=== PATIENT | male | born 1985 | race Caucasian/White ===

== ENCOUNTER 2018-02-13 14:55 | Emergency (ER) | payer OTHER ==
[~2018-02-13] VITALS: Ht 177.8 cm; Wt 111.9 kg
[2018-02-13 15:08] VITALS: TEMP 36.8; Ht 177.8 cm; Wt 111.9 kg
--- NOTE | 2018-02-13 16:03 | DIAGNOSTIC IMAGING REPORT ---
R FOREARM 2 VIEWS ROUTINE, R HAND MIN 3 VIEWS ROUTINE CLINICAL HISTORY: 33 years-old Male presenting with right hand and forearm pain and injury. TECHNIQUE: Frontal and lateral views of the right forearm as well as frontal, oblique, and lateral views of the right hand were obtained. COMPARISON: None. FINDINGS: Right forearm: Proximal and distal radial ulnar articulations grossly congruent. No acute fracture or malalignment. No advanced degenerative change. No radiographic soft tissue abnormality. Right hand: No acute fracture or malalignment. No advanced degenerative change. No radiographic soft tissue abnormality. IMPRESSION: No acute osseous injury right forearm or hand. Electronically signed by: Joe Thorne M.D. 02/13/2018 4:02 PM Dictated Date/Time: 02/13/2018 4:00 PM
[2018-02-13] MEDS ORDERED: IBUPROFEN 600 MG TAB PO STA (16:35)
[2018-02-13 17:08] VITALS: BP 115/57; PULSE 67; O2SAT 95
--- NOTE | 2018-02-14 15:56 | EMERGENCY ROOM VISIT NOTE ---
ED Visit Note First contact with patient: 15:12 Chief Complaint: Right forearm, right wrist and right hand pain. History of Present Illness: Mr. Tanner is a 33-year-old male who ambulates into the ED accompanied by male friend complaining of right forearm, right wrist and right hand pain. 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 He reports his hand was lying against a door frame and his commanding officer accidentally struck his arm, wrist and hand. He reports since that time he has been having moderate to severe pain over the distal forearm, the wrist and the lateral metacarpals of the hand. Currently he describes his pain as a sharp and throbbing sensation. He rates his discomfort 8/10. His pain is nonradiating. His pain worsens with palpation in all movements of the forearm, wrist and hand. He has not identified any alleviating factors related to the pain. He was assessed at the [facility] and put in a long arm splint to immobilize the forearm, wrist and hand. He has not had any medications or other therapies for his discomfort. He denies any associated neck pain, shoulder pain, upper arm pain, hand weakness/ numbness/tingling. Additionally he denies any previous significant injuries or surgeries to the wrist, forearm or hand. Review of Systems: As noted above in history of present illness. Past Medical History: Asthma. Current Medications: Patient denies. Allergies to Medications: Patient denies. Social History: Patient is currently employed; he feels safe in his home environment; he denies tobacco and alcohol use. Physical Examination: Vital Signs: Date Time Temp Pulse Resp B/P (MAP) Pulse Ox O2 Delivery O2 Flow Rate FiO2 02/13/18 17:08 67 16 115/57 95 02/13/18 15:08 36.8 84 20 153/78 95 Room Air GENERAL: 33-year-old male in mild to moderate distress due to pain, nontoxic- appearing, afebrile and hemodynamically stable. NEUROLOGICAL: Awake, alert and oriented to person, place and time. Answering questions appropriately and following commands. SKIN: Warm, dry and pink. No open soft tissue trauma noted. RIGHT UPPER EXTREMITY: No gross bony deformity. No tenderness in the shoulder, upper arm or elbow. Moderate tenderness over the mid to distal forearm predominantly over the lateral surface. There is some mild swelling and possible early bruising. No bony deformity or crepitus. Decreased range of motion in pronation and supination of forearm due to pain. There is mild tenderness over the wrist. No anatomical snuffbox tenderness. There is no swelling, bony deformity or ecchymosis in this area. Once again there is decreased range of motion due to pain. Mild tenderness over the lateral 3 metacarpals with minimal swelling. No bony deformity, bony crepitus, swelling or ecchymosis. Patient was able to wiggle all his fingers. Throughout the hand and fingers the skin was warm and pink and capillary refill was brisk. He was able to distinguish light sensations to all dermatomes. ED Course: Patient is assessed as noted above. Patient's medication list was reviewed. Patient was given 600 mg of ibuprofen and ice for pain and comfort. Right Forearm X-Rays: Were read by myself and the radiologist showing no acute fractures or dislocations. Right Hand X-Rays: Were read by myself and the radiologist showing no acute fractures or dislocations. Patient was placed in a wrist lacer splint. Patient was educated about today's findings and instructed on his treatment plan ; he verbalized understanding and agreement with this plan. Clinical Impression: Right forearm, wrist and hand pain. Probable early contusions. Work-related injury. Disposition: Patient discharged to home in stable condition accompanied by male friend; prior to departure he was reassessed and subjectively reported he was feeling better and rated his discomfort 3/10. Plan: Comfort measures were discussed with the patient including rest, ice, splint use and alternating ibuprofen and acetaminophen every 3 hours for persistent pain. Patient was signed off of work for 3 days. Patient was encouraged to follow-up with Workmen's Compensation on day 3 for recheck and return to work instruction. Patient was encouraged return the ED for worsening/uncontrolled pain, uncontrolled swelling, hand weakness/numbness/tingling or any new/concerning symptoms
== END 2018-02-13 17:08 | disposition home or self-care (01) ==
LOC: C.EDB 14:56 → C.EDD 17:08
DX: M79.631 Pain in right forearm (principal); M79.641 Pain in right hand; M25.531 Pain in right wrist; W50.0XXA Accidental hit or strike by another person, initial encounter; Y92.149 Unspecified place in prison as the place of occurrence of the external cause; Y99.0 Civilian activity done for income or pay; J45.909 Unspecified asthma, uncomplicated

== ENCOUNTER 2024-08-02 19:54 | Inpatient (IN) ==
--- NOTE | 2024-08-02 20:04 | Emergency Department Note ---
Impression & Plan Diverticulitis, Abdominal pain ED Provider Note CHIEF COMPLAINT: Abdominal pain HISTORY OF PRESENT ILLNESS: This 39-year-old male patient presents to the emergency department via private vehicle for evaluation of left lower quadrant abdominal pain. He reports he was seen at [facility], prior to arrival. He reports pain has been persistent over the last 2 days, with history of diverticulitis. He states his last bowel movement was today, which was normal. The patient reports no pain in the RLQ, or radiation of pain from the left to right. He reports no fever, nausea/vomiting, diarrhea, constipation, or dysuria. He reports no radiation of the pain into the testicle. He reports no previous abdominal surgeries, or history. REVIEW OF SYSTEMS: A review of systems was performed with positives and pertinent negatives listed in the history of present illness. All other systems were reviewed and are negative. ALLERGIES: See below MEDICATIONS: See below PMH: See below PHYSICAL EXAM: VITALS: Vitals are noted on the nurse's note and reviewed by myself. Vital signs stable. GENERAL: 39-year-old male, in no acute distress, nondiaphoretic, well-developed well-nourished. SKIN: The skin was without rashes, erythema, edema, or bruising. HEAD: Normocephalic atraumatic. HEART: Regular rate and rhythm without murmurs gallops or rubs. LUNGS: Clear to auscultation bilaterally without wheezes, rales or rhonchi. No retractions or accessory muscle use. ABDOMEN: Positive bowel sounds x 4. Soft, severe TTP, with rebound tenderness and guarding. MUSCULOSKELETAL: No muscle atrophy, erythema, or edema noted. Full range of motion without joint tenderness in all extremities. No tenderness to palpation. Normal gait. Strength 5/5 throughout. NEURO: Patient was alert and oriented to person place and time. No focal neurological deficits. MEDICAL DECISION MAKING: Patient is a pleasant 39-year-old male who presents to the emergency department for evaluation of the above stated complaint. A saline lock was established, CBC, CMP, lipase, urinalysis were obtained. Patient was severely painful, therefore IV morphine was provided, as well as 4 mg of IV Zofran and a liter bolus of normal saline. Lab work shows leukocytosis, 19.8, with a stable anemia. CMP is unremarkable, lipase negative. CT imaging of the abdomen pelvis with IV contrast was obtained which shows acute diverticulitis without abscess. IV Zosyn was administered with IV morphine and Dilaudid for pain control. The patient did request his albuterol HFA inhaler for mild shob. I spoke with the admitting hospitalist regarding the patient who agreed to accept the patient under his care. Please refer to Dr. Wu's documentation for further patient workup and care. DIFFERENTIAL DIAGNOSIS: Appendicitis, testicular torsion, infections, diverticulitis, UTI, obstruction, mesenteric ischemia, aortic pathology, inflammatory bowel disease, renal colic, PUD, pancreatitis, biliary pathology, hernia, volvulus, constipation, as well as other pathologies. The chart was completed utilizing [employer] Speech voice recognition software. Grammatical errors, random word insertions, pronoun errors, and incomplete sentences are an occasional consequence of this system due to software limitations, ambient noise, and hardware issues. Any formal questions or concerns about the content, text, or information contained within the body of this dictation should be directly addressed to the physician for clarification. Past Med/Surg History Problem List (Updated 08/04/24 @ 20:54 by CHENCHO Jay) Abdominal pain (Acute) Diverticulitis (Acute) Sepsis No significant past surgical history Plaque psoriasis Family History Other No pertinent family history Social History Smoking Status: Never smoker Tobacco Type: Smokeless Tobacco (Dip or Chew) Hx Alcohol Use: No Hx Substance Use: No Preferred Language: Portuguese Communication Ability: Effective Food Processing Chemist Required: No Beliefs That Will Affect Care: None Current Living Situation: Spouse Feels Safe at Home: Yes Safety Concerns: Feels Safe At This Time Assistive Devices: None Allergies Allergies Allergy/AdvReac Type Severity Reaction Status Date / Time No Known Allergies Allergy Unverified 07/31/21 23:09 Home Meds Home Medications Medication Instructions Recorded Confirmed citalopram 40 mg tablet 40 mg PO DAILY 07/31/21 07/31/21 Results & Data (ED) Vital Signs Vital Signs - 24 hr 08/02/24 19:56 Temperature 36.4 C L Temperature Source Temporal Artery Scan Pulse Rate 112 H Pulse Rhythm Regular Pulse Strength Normal Respiratory Rate 20 Respiratory Effort / Characteristics Non-Labored Spontaneous Respiratory Depth Normal Blood Pressure 172/85 H Blood Pressure Mean 114 Blood Pressure Position Sitting Pulse Oximetry 97 Oxygen Delivery Method Room Air Sepsis Recent Fever Within 48 Hours No Sepsis New/Unexplained Change in Mental Status N/A Sepsis Action Taken by Nursing No Action Required Home Medications Current Medication List: was personally reviewed by me Laboratory Data Attestation: I reviewed the patient's lab results. 08/04/24 07:45 08/04/24 07:45 Lab Results 08/02/24 08/02/24 Range/Units 20:22 21:00 WBC 19.80 H (4.8-10.8) K/ul RBC 4.61 L (4.70-6.10) M/uL Hgb 13.2 L (14.0-18.0) g/dl Hct 37.4 L (42.0-52.0) % MCV 81.1 (80.0-100.0) fL MCH 28.6 (25.0-34.0) pg MCHC 35.3 (32.0-36.0) g/dL RDW Std Deviation 37.2 (36.4-46.3) fL RDW Coeff of Libby 12.7 (11.5-14.5) % Plt Count 393 (130-400) K/uL MPV 9.5 (9.4-12.4) fL Immature Gran % (Auto) 0.6 % Neut % (Auto) 83.4 % Lymph % (Auto) 7.9 % [place] % (Auto) 7.0 % Eos % (Auto) 0.6 % Baso % (Auto) 0.5 % Neut # (Auto) 16.55 H (1.40-6.50) K/uL Lymph # (Auto) 1.56 (1.20-3.40) K/uL [place] # (Auto) 1.38 H (0.11-0.59) K/uL Eos # (Auto) 0.11 (0.00-0.50) K/uL Baso # (Auto) 0.09 (0.00-0.20) K/uL Immature Gran # (Auto) 0.11 (0.01-0.20) K/uL Sodium 137 (136-145) mmol/L Potassium 3.8 (3.5-5.1) mmol/L Chloride 103 (98-107) mmol/L Carbon Dioxide 24 (21-32) mmol/L Anion Gap 10 (3-11) BUN 17 (6-23) mg/dl Creatinine 0.88 (0.6-1.4) mg/dl Est Cr Clr Drug Dosing 136.4 ml/min eGFR 111.48 BUN/Creatinine Ratio 19.3 (10-20) Glucose 115 H (70-99(Fasting)) mg/dl Calcium 9.3 (8.6-10.3) mg/dl Magnesium 1.9 (1.7-2.4) mg/dl Total Bilirubin 1.1 H (0.2-1.0) mg/dl AST 37 (13-39) U/L ALT 40 (7-52) U/L Alkaline Phosphatase 69 (34-104) U/L Total Protein 7.9 (6.0-8.3) gm/dl Albumin 4.5 (3.4-5.0) gm/dl Globulin 3.4 (2.5-4.0) gm/dl Albumin/Globulin Ratio 1.3 (0.9-2) Lipase 43 (11-82) U/L Urine Color Yellow Urine Appearance Clear (Clear) Urine pH 7.5 (4.5-7.5) Ur Specific Collins > 1.045 H (1.000-1.030) Urine Protein Negative (Negative) Urine Glucose (UA) Negative (Negative) Urine Ketones Negative (Negative) Urine Blood 2+ H (Negative) Urine Nitrite Negative (Negative) Urine Bilirubin Negative (Negative) Urine Urobilinogen Negative (Negative) Ur Leukocyte Esterase Negative (Negative) Urine WBC (Auto) 0-5 (0-5) /hpf Urine RBC (Auto) >20 H (0-2) /hpf U Hyaline Cast (Auto) 0-2 (0-2) /lpf U Epithel Cells (Auto) 0-2 (0-2) /hpf Urine Bacteria (Auto) None Seen (None Seen) Administered Medications Citalopram Hydrobromide (Citalopram 40 Mg Tab) [facility] Stop: 09/02/24 08:59 Last Admin: 08/04/24 09:02 Dose: Not Given Documented By: BCMike Admin: 08/03/24 07:21 Dose: 40 mg Documented By: AJB Hydromorphone HCl (Hydromorphone Inj 0.5 Mg/0.5 Ml Syr) 0.5 mg IV Q3H PRN PRN Reason: Mod-Sev Pain (Scale 4-10) Stop: 08/17/24 19:43 Last Admin: 08/04/24 19:12 Dose: 0.5 mg Documented By: Admin: 08/04/24 15:28 Dose: 0.5 mg Documented By: Admin: 08/04/24 11:40 Dose: 0.5 mg Documented By: Admin: 08/04/24 08:33 Dose: 0.5 mg Documented By: Admin: 08/04/24 05:13 Dose: 0.5 mg Documented By: Admin: 08/04/24 00:57 Dose: 0.5 mg Documented By: Admin: 08/03/24 21:47 Dose: 0.5 mg Documented By: DEANDRE Piperacillin Sod/Tazobactam Sod (Zosyn) 4.5 gm in 100 mls @ 25 mls/hr IV Q8H BETTYE; Protocol Stop: 08/13/24 02:59 Last Admin: 08/04/24 18:06 Dose: 25 mls/hr Documented By: Infusion: 08/04/24 14:48 Dose: Infused Documented By: Admin: 08/04/24 10:42 Dose: 25 mls/hr Documented By: Infusion: 08/04/24 07:20 Dose: Infused Documented By: Admin: 08/04/24 02:54 Dose: 25 mls/hr Documented By: Infusion: 08/04/24 00:37 Dose: Infused Documented By: Admin: 08/03/24 20:35 Dose: 25 mls/hr Documented By: Infusion: 08/03/24 15:43 Dose: Infused Documented By: Admin: 08/03/24 11:43 Dose: 25 mls/hr Documented By: Infusion: 08/03/24 07:09 Dose: Infused Documented By: Admin: 08/03/24 03:09 Dose: 25 mls/hr Documented By: DEANDRE Dextrose/Sodium Chloride (D5w And 1/2nss) 1,000 mls @ 125 mls/hr IV .Q8H BETTYE Stop: 08/05/24 19:21 Last Admin: 08/04/24 19:49 Dose: 125 mls/hr Documented By: NANCY Lisinopril (Lisinopril 5 Mg Tab) 5 mg PO QAM [facility] Stop: 09/02/24 08:59 Last Admin: 08/04/24 08:06 Dose: 5 mg Documented By: Admin: 08/03/24 07:21 Dose: 5 mg Documented By: KATIA Lorazepam (Lorazepam 1 Mg Tab) 1 mg PO TID PRN PRN Reason: Anxiety Stop: 09/01/24 21:26 Last Admin: 08/03/24 21:47 Dose: 1 mg Documented By: DEANDRE Discontinued Medications Acetaminophen (Acetaminophen 325 Mg Tab) 650 mg PO QID PRN PRN Reason: pain/fever Stop: 09/01/24 21:25 Last Admin: 08/03/24 07:28 Dose: 650 mg Documented By: Admin: 08/02/24 23:05 Dose: 650 mg Documented By: DEANDRE Albuterol (Albuterol Hfa 8 Gm Inhaler) 2 puffs INH NOW ONE Stop: 08/02/24 20:23 Last Admin: 08/02/24 20:25 Dose: 2 puffs Documented By: CORIE Clonidine HCl (Clonidine Hcl 0.1 Mg Tab) 0.1 mg PO NOW ONE Stop: 08/02/24 22:00 Last Admin: 08/02/24 23:04 Dose: Not Given Documented By: DEANDRE Hydromorphone HCl (Hydromorphone Inj 0.5 Mg/0.5 Ml Syr) 0.5 mg IV NOW STA Stop: 08/02/24 21:09 Last Admin: 08/02/24 21:21 Dose: 0.5 mg Documented By: CORIE Hydromorphone HCl (Hydromorphone Inj 1 Mg/Ml Syringe) 1 mg IV NOW STA Stop: 08/03/24 09:18 Last Admin: 08/03/24 09:25 Dose: 1 mg Documented By: KATIA Hydromorphone HCl (Hydromorphone Inj 1 Mg/Ml Syringe) 1 mg IV Q3H PRN PRN Reason: Severe Pain (Scale 7, 8, 9,10) Stop: 08/17/24 09:16 Last Admin: 08/03/24 14:20 Dose: 1 mg Documented By: KATIA Hydromorphone HCl (Hydromorphone Inj 0.5 Mg/0.5 Ml Syr) 0.5 mg IV Q3H PRN PRN Reason: Moderate Pain (Scale 4, 5, 6) Stop: 08/17/24 09:16 Last Admin: 08/03/24 11:45 Dose: 0.5 mg Documented By: KATIA Hydromorphone HCl (Hydromorphone Transportation Engineering Technician 30 Mg/30 Ml) 30 mg IV PRN PRN; 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 Stop: 08/17/24 15:22 Last Admin: 08/03/24 19:32 Dose: 30 mg Documented By: DEANDRE Co-signed By: MYESHA Admin: 08/03/24 16:40 Dose: 30 mg Documented By: KATIA Co-signed By: OTILIA Sodium Chloride (Nss) 1,000 mls @ 999 mls/hr IV .Q1H1M ONE Stop: 08/02/24 21:07 Last Infusion: 08/02/24 22:33 Dose: Infused Documented By: Admin: 08/02/24 20:19 Dose: 999 mls/hr Documented By: CORIE Piperacillin Sod/Tazobactam Sod (Zosyn) 4.5 gm in 100 mls @ 200 mls/hr IV NOW ONE; Protocol Stop: 08/02/24 21:12 Last Infusion: 08/02/24 22:00 Dose: Infused Documented By: Admin: 08/02/24 21:00 Dose: 200 mls/hr Documented By: CORIE Potassium Chloride/Sodium Chloride (Normal Saline W/20 Meq Kcl) 20 meq in 1,000 mls @ 60 mls/hr IV .[id number] ONE Stop: 08/03/24 14:51 Last Infusion: 08/03/24 14:59 Dose: Infused Documented By: Admin: 08/03/24 00:08 Dose: 60 mls/hr Documented By: DEANDRE Sodium Chloride (Nss) 1,000 mls @ 999 mls/hr IV .Q1H1M ONE Stop: 08/03/24 16:25 Last Infusion: 08/03/24 16:35 Dose: Infused Documented By: Admin: 08/03/24 15:34 Dose: 999 mls/hr Documented By: KATIA Sodium Chloride (Nss) 1,000 mls @ 125 mls/hr IV .Q8H BETTYE Stop: 08/04/24 15:29 Last Infusion: 08/04/24 16:05 Dose: Infused Documented By: Admin: 08/04/24 08:07 Dose: 125 mls/hr Documented By: Infusion: 08/04/24 08:07 Dose: Infused Documented By: Admin: 08/04/24 00:37 Dose: 125 mls/hr Documented By: Infusion: 08/04/24 00:37 Dose: Infused Documented By: Admin: 08/03/24 16:37 Dose: 125 mls/hr Documented By: KATIA Influenza Virus Vacc Triv Types A&B (Influenza Vacc [id number](6m+)/Pf (Iiv3) 0.5ml Syr) 0.5 ml IM .ONCE ONE Stop: 08/04/24 07:45 Last Admin: 08/04/24 18:05 Dose: Not Given Documented By: CASSANDRA Ioversol (Optiray 320 100ml) 94 ml IV ONCE ONE Stop: 08/02/24 20:38 Last Admin: 08/02/24 20:37 Dose: 94 ml Documented By: JOHANNY Ketorolac Tromethamine (Ketorolac Tromethamine 15 Mg/Ml Vial) 15 mg IV NOW ONE Stop: 08/02/24 22:00 Last Admin: 08/02/24 23:05 Dose: 15 mg Documented By: DEANDRE Lorazepam (Lorazepam 0.5 Mg Tab) 0.5 mg PO TID PRN PRN Reason: Anxiety Stop: 09/01/24 21:26 Last Admin: 08/03/24 14:20 Dose: 0.5 mg Documented By: KATIA Morphine Sulfate (Morphine Sulfate 4 Mg/Ml 1 Ml Carp\Vial) 4 mg IV NOW STA Stop: 08/02/24 20:08 Last Admin: 08/02/24 20:19 Dose: 4 mg Documented By: CORIE Morphine Sulfate (Morphine Sulfate 4 Mg/Ml 1 Ml Carp\Vial) 4 mg IV Q4H PRN PRN Reason: Pain Stop: 08/16/24 21:25 Last Admin: 08/03/24 07:21 Dose: 4 mg Documented By: KATIA Ondansetron HCl (Ondansetron Inj 2 Mg/Ml 2 Ml Vial) 4 mg IV NOW STA Stop: 08/02/24 20:09 Last Admin: 08/02/24 20:19 Dose: 4 mg Documented By: CORIE Oxycodone HCl (Oxycodone Hcl Ir 5 Mg Tab (Immediate Release)) 5 - 10 mg PO QID PRN PRN Reason: Pain Stop: 08/16/24 21:25 Last Admin: 08/03/24 04:48 Dose: 10 mg Documented By: DEANDRE Potassium Chloride (Potassium Chloride Crtab 20 Meq Tabcr) 20 meq PO NOW STA Stop: 08/04/24 12:54 Last Admin: 08/04/24 13:17 Dose: 20 meq Documented By: CASSANDRA Imaging Data Attestation: I personally reviewed and interpreted this imaging study as follows: Discharge Plan Visit Data Chief Complaint: Abdominal Pain Stated Complaint: LT LOWER QUAD PAIN ED Provider: Jorge Yadav ED Midlevel Provider: Farhana Elliott Discharge Problem: Diverticulitis, Abdominal pain Patient Disposition: Admitted As Inpatient Discharge Instructions Interventions: ED Discharge Assessment Last Done: 08/02/24 22:31 Discharge Problem: Abdominal pain Qualifiers: Abdominal location: left lower quadrant Qualified Code(s): R10.32 - Left lower quadrant pain
[2024-08-02] MEDS: SODIUM CHLORIDE 0.9% 1,000 ML IV ONE (20:19)
[2024-08-02] MEDS: ONDANSETRON INJ 2 MG/ML 2 ML VIAL IV STA (20:19)
[2024-08-02] MEDS: MoRPHine SULFATE 4 MG/ML 1 ML CARP\\VIAL IV STA (20:19)
[2024-08-02] MEDS: ALBUTEROL HFA 8 GM INHALER INH ONE (20:25)
[2024-08-02 20:37] LABS: Basophils # (auto) 0.09 K/uL (0.00-0.20); Basophils % (auto) 0.5 %; Eosinophils # (auto) 0.11 K/uL (0.00-0.50); Eosinophils % (auto) 0.6 %; Hematocrit (blood only) 37.4 % (42.0-52.0); Hemoglobin 13.2 g/dl (14.0-18.0); Immature Granulocytes # (auto) 0.11 K/uL (0.01-0.20); Immature Granulocytes % (auto) 0.6 %; Lymphocytes # (auto) 1.56 K/uL (1.20-3.40); Lymphocytes % (auto) 7.9 %; Mean Corpuscular Hemoglobin 28.6 pg (25.0-34.0); Mean Corpuscular Hgb Conc 35.3 g/dL (32.0-36.0); Mean Corpuscular Volume 81.1 fL (80.0-100.0); Mean Platelet Volume 9.5 fL (9.4-12.4); Monocytes # (auto) 1.38 K/uL (0.11-0.59); Neutrophils # (auto) 16.55 K/uL (1.40-6.50); Neutrophils % (auto) 83.4 %; Platelet Count 393 K/uL (130-400); RDW Coefficient of Variation 12.7 % (11.5-14.5); RDW Standard Deviation 37.2 fL (36.4-46.3); Red Blood Count 4.61 M/uL (4.70-6.10)
[2024-08-02] MEDS: OPTIRAY 320 100ml IV ONE (20:37)
[2024-08-02 20:53] LABS: Albumin Globulin Ratio 1.3 (0.9-2); Albumin Level 4.5 gm/dl (3.4-5.0); BUN Creatinine Ratio 19.3 (10-20); Bilirubin,Total 1.1 mg/dl (0.2-1.0); Calcium 9.3 mg/dl (8.6-10.3); Creatinine Clr Calc Pharmacy 136.4 ml/min; Globulin 3.4 gm/dl (2.5-4.0); Potassium 3.8 mmol/L (3.5-5.1); Total Protein 7.9 gm/dl (6.0-8.3)
--- NOTE | 2024-08-02 20:57 | CT Scan Report ---
Exam(s): CT ABDOMEN + PELVIS With Contrast IV Amt: 94ml optiray 320 EXAM: CT Abdomen and Pelvis With Intravenous Contrast CLINICAL HISTORY: Reason for exam: TTP LLQ. TECHNIQUE: Axial computed tomography images of the abdomen and pelvis with intravenous contrast. CTDI is 28 mGy and DLP is 1556 mGy-cm. Automated exposure control was utilized for the study. A dose lowering technique was utilized adhering to the principles of ALARA. CONTRAST: Patient received 94ml optiray 320 of IV contrast COMPARISON: No relevant prior studies available. FINDINGS: Lung bases: Unremarkable. ABDOMEN: Liver: Unremarkable. No mass. Gallbladder and bile ducts: Unremarkable. No calcified stones. No ductal dilation. Pancreas: Unremarkable. No mass. No ductal dilation. Spleen: Calcified splenic granuloma. Adrenals: Unremarkable. No mass. Kidneys and ureters: Symmetric renal enhancement. No hydronephrosis. Subcentimeter left renal cysts; no follow-up indicated. Stomach and bowel: No bowel obstruction. Diverticulosis. Acute diverticulitis of the mid sigmoid colon. Prominent pocket of gas adjacent to the sigmoid colon is favored gas within an inflamed diverticulum rather than microperforation (series 2, image 80). PELVIS: Appendix: Normal appendix. Bladder: Unremarkable. No mass. Reproductive: Unremarkable as visualized. ABDOMEN and PELVIS: Intraperitoneal space: Trace ascites in the left lower quadrant. No abscess. No convincing evidence of free air. Bones/joints: No acute fracture. No dislocation. Soft tissues: Unremarkable. Vasculature: Unremarkable. No abdominal aortic aneurysm. Lymph nodes: Mildly enlarged, reactive lymph nodes in the sigmoid mesentery. IMPRESSION: Acute diverticulitis of the mid sigmoid colon. Prominent pocket of gas adjacent to the sigmoid colon is favored gas within an inflamed diverticulum rather than microperforation (series 2, image 80). No abscess. Electronically signed by: Marixa Batista M.D. 08/02/24 20:56 PM
[2024-08-02] MEDS: PIPERACILLIN/TAZOBACTAM 4.5 GM/100 ML BAG IV ONE (21:00)
[2024-08-02] MEDS: HYDROmorphone INJ 0.5 MG/0.5 ML SYR IV STA (21:21)
--- NOTE | 2024-08-02 21:24 | History & Physical Report ---
Date of Service August 02, 2024 Assessment & Plan (1) Sepsis: Plan: Sepsis secondary to acute diverticulitis Hypertensive urgency, history of borderline hypertension New onset anemia, no prior diagnosis as per patient patient without overt bleed symptoms Hyperglycemia rule out DM Medical telemetry CS, Zosyn Outpatient GI consult Clonidine 1 dose now, initiate lisinopril if with persistent BP elevation Anemia workup Check hemoglobin A1c DVT prophylaxis. SCDs until occult GI bleed ruled out; Lovenox subcu if FOBT negative Full code Text document was generated using [employer] voice recognition software. It may contain grammatical or spelling errors. Kindly contact undersigned for clarification of any documentation item in question. History of Present Illness Chief Complaint: Left-sided abdominal pain Primary Care Provider: [facility] History obtained from patient and records. Medical history significant for borderline hypertension, mood disorder. 2 days history of achy left lower quadrant pain associated with nausea and vomiting symptoms. Fever chills at home. Denies constipation, diarrhea or hematochezia symptoms. No prior episodes. Highest SBP of 170s documented at the ER. IV Zosyn administered at the ER. Medical History as above No prior colonoscopies. 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 Allergies Allergy/AdvReac Type Severity Reaction Status Date / Time No Known Allergies Allergy Unverified 07/31/21 23:09 Home Medications Medication Instructions Recorded Confirmed Type citalopram 40 mg tablet 40 mg PO DAILY 07/31/21 07/31/21 History Past Med/Surg History Problem List (Updated 08/02/24 @ 23:00 by Ramses Wu MD) Sepsis No significant past surgical history Plaque psoriasis Medical History Plaque psoriasis Surgical History No significant past surgical history Family History Other No pertinent family history Social History Smoking Status: Never smoker Preferred Language: Cook Islander Feels Safe at Home: Yes Review of Systems Review of Systems: As per HPI, all other systems reviewed and negative Physical Exam Physical Exam: GENERAL: uncomfortable, obese, no respiratory distress SKIN: Normal color, warm HEENT: [place] palpebral conjunctivae, no ptosis, dry buccal mucosa NECK : Supple, short neck, no tenderness CHEST : Decreased breath sounds, no tenderness HEART : RRR, no obvious murmurs ABDOMEN: Some distention, left lower quadrant tenderness EXTREMITIES : Minimal LE swelling/tenderness, palpable pulses, no other conspicuous deformities noted NEUROLOGIC : Coherent, no facial asymmetry, no other gross focality Results & Data Results & Data Vital Signs (Past 12 Hours) Vital Signs Temp Pulse Pulse Resp BP BP Pulse Ox 08/02/24 21:04 08/02/24 21:03 98 H 16 155/81 H 95 08/02/24 19:56 36.4 C L 112 H 20 172/85 H 97 O2 Del Method 08/02/24 21:04 Room Air 08/02/24 21:03 Room Air 08/02/24 19:56 Room Air Laboratory Results Laboratory Results WBC 19.80 K/ul (4.8-10.8) H 08/02/24 20:22 RBC 4.61 M/uL (4.70-6.10) L 08/02/24 20:22 Hgb 13.2 g/dl (14.0-18.0) L 08/02/24 20:22 Hct 37.4 % (42.0-52.0) L 08/02/24 20:22 MCV 81.1 fL (80.0-100.0) 08/02/24 20:22 MCH 28.6 pg (25.0-34.0) 08/02/24 20:22 MCHC 35.3 g/dL (32.0-36.0) 08/02/24 20:22 RDW Std Deviation 37.2 fL (36.4-46.3) 08/02/24 20:22 RDW Coeff of Libby 12.7 % (11.5-14.5) 08/02/24 20:22 Plt Count 393 K/uL (130-400) 08/02/24 20:22 MPV 9.5 fL (9.4-12.4) 08/02/24 20:22 Immature Gran % (Auto) 0.6 % 08/02/24 20:22 Neut % (Auto) 83.4 % 08/02/24 20:22 Lymph % (Auto) 7.9 % 08/02/24 20:22 Bartholomew % (Auto) 7.0 % 08/02/24 20:22 Eos % (Auto) 0.6 % 08/02/24 20:22 Baso % (Auto) 0.5 % 08/02/24 20:22 Neut # (Auto) 16.55 K/uL (1.40-6.50) H 08/02/24 20:22 Lymph # (Auto) 1.56 K/uL (1.20-3.40) 08/02/24 20:22 Bartholomew # (Auto) 1.38 K/uL (0.11-0.59) H 08/02/24 20:22 Eos # (Auto) 0.11 K/uL (0.00-0.50) 08/02/24 20:22 Baso # (Auto) 0.09 K/uL (0.00-0.20) 08/02/24 20:22 Immature Gran # (Auto) 0.11 K/uL (0.01-0.20) 08/02/24 20:22 Sodium 137 mmol/L (136-145) 08/02/24 20:22 Potassium 3.8 mmol/L (3.5-5.1) 08/02/24 20:22 Chloride 103 mmol/L (98-107) 08/02/24 20:22 Carbon Dioxide 24 mmol/L (21-32) 08/02/24 20:22 Anion Gap 10 (3-11) 08/02/24 20:22 BUN 17 mg/dl (6-23) 08/02/24 20:22 Creatinine 0.88 mg/dl (0.6-1.4) 08/02/24 20:22 Est Cr Clr Drug Dosing 136.4 ml/min 08/02/24 20:22 eGFR 111.48 08/02/24 20:22 BUN/Creatinine Ratio 19.3 (10-20) 08/02/24 20:22 Glucose 115 mg/dl (70-99(Fasting)) H 08/02/24 20:22 Calcium 9.3 mg/dl (8.6-10.3) 08/02/24 20:22 Total Bilirubin 1.1 mg/dl (0.2-1.0) H 08/02/24 20:22 AST 37 U/L (13-39) 08/02/24 20:22 ALT 40 U/L (7-52) 08/02/24 20:22 Alkaline Phosphatase 69 U/L (34-104) 08/02/24 20:22 Total Protein 7.9 gm/dl (6.0-8.3) 08/02/24 20:22 Albumin 4.5 gm/dl (3.4-5.0) 08/02/24 20:22 Globulin 3.4 gm/dl (2.5-4.0) 08/02/24 20:22 Albumin/Globulin Ratio 1.3 (0.9-2) 08/02/24 20:22 Lipase 43 U/L (11-82) 08/02/24 20:22 Impressions Abdomen/Pelvis CT 08/02/24 20:08 Exam(s): CT ABDOMEN + PELVIS With Contrast IV Amt: 94ml optiray 320 EXAM: CT Abdomen and Pelvis With Intravenous Contrast CLINICAL HISTORY: Reason for exam: TTP LLQ. TECHNIQUE: Axial computed tomography images of the abdomen and pelvis with intravenous contrast. CTDI is 28 mGy and DLP is 1556 mGy-cm. Automated exposure control was utilized for the study. A dose lowering technique was utilized adhering to the principles of ALARA. CONTRAST: Patient received 94ml optiray 320 of IV contrast COMPARISON: No relevant prior studies available. FINDINGS: Lung bases: Unremarkable. ABDOMEN: Liver: Unremarkable. No mass. Gallbladder and bile ducts: Unremarkable. No calcified stones. No ductal dilation. Pancreas: Unremarkable. No mass. No ductal dilation. Spleen: Calcified splenic granuloma. Adrenals: Unremarkable. No mass. Kidneys and ureters: Symmetric renal enhancement. No hydronephrosis. Subcentimeter left renal cysts; no follow-up indicated. Stomach and bowel: No bowel obstruction. Diverticulosis. Acute diverticulitis of the mid sigmoid colon. Prominent pocket of gas adjacent to the sigmoid colon is favored gas within an inflamed diverticulum rather than microperforation (series 2, image 80). PELVIS: Appendix: Normal appendix. Bladder: Unremarkable. No mass. Reproductive: Unremarkable as visualized. ABDOMEN and PELVIS: Intraperitoneal space: Trace ascites in the left lower quadrant. No abscess. No convincing evidence of free air. Bones/joints: No acute fracture. No dislocation. Soft tissues: Unremarkable. Vasculature: Unremarkable. No abdominal aortic aneurysm. Lymph nodes: Mildly enlarged, reactive lymph nodes in the sigmoid mesentery. IMPRESSION: Acute diverticulitis of the mid sigmoid colon. Prominent pocket of gas adjacent to the sigmoid colon is favored gas within an inflamed diverticulum rather than microperforation (series 2, image 80). No abscess. Electronically signed by: Marixa Batista M.D. 08/02/24 20:56 PM Diagnostic Findings EKG as per my interpretation :Rate 105, sinus tachycardia, normal axis, no ischemia
[2024-08-02] MEDS ORDERED: PROMETHAZINE 12.5 MG/50.5 ML BAG IV PRN (21:26)
[2024-08-02 21:40] LABS: Magnesium 1.9 mg/dl (1.7-2.4)
[2024-08-02 21:46] LABS: Appearance Urine Clear (Clear); Bacteria Urine Automated None Seen (None Seen); Bilirubin Urine Negative (Negative); Blood Urine 2+ (Negative); Cast Urine Automated 0-2 /lpf (0-2); Color Urine Yellow; Epithelial Cell Urine Auto 0-2 /hpf (0-2); Glucose Urine UA Negative (Negative); Ketones Urine Negative (Negative); Leukocyte Esterase Urine Negative (Negative); Nitrite Urine Negative (Negative); Protein Urine Negative (Negative); RBC Urine Automated >20 /hpf (0-2); Specific Gravity Urine > 1.045 (1.000-1.030); Urobilinogen Urine Negative (Negative); WBC Urine Automated 0-5 /hpf (0-5); pH Urine 7.5 (4.5-7.5)
[2024-08-02] MEDS: cloNIDine HCL 0.1 MG TAB PO ONE (23:04)
[2024-08-02] MEDS: ACETAMINOPHEN 325 MG TAB PO PRN (23:05)
[2024-08-02] MEDS: KETOROLAC TROMETHAMINE 15 MG/ML VIAL IV ONE (23:05)
[2024-08-03] MEDS: NSS + 20MEQ KCL 20 MEQ/1,000 ML BAG IV ONE (00:08)
[2024-08-03] MEDS: PIPERACILLIN/TAZOBACTAM 4.5 GM/100 ML BAG IV SCH (03:09)
[2024-08-03] MEDS: oxyCODONE HCL IR 5 MG TAB (IMMEDIATE RELEASE) PO PRN (04:48)
[2024-08-03 06:30] LABS: Basophils # (auto) 0.07 K/uL (0.00-0.20); Basophils % (auto) 0.3 %; Eosinophils # (auto) 0.03 K/uL (0.00-0.50); Eosinophils % (auto) 0.1 %; Hematocrit (blood only) 35.8 % (42.0-52.0); Hemoglobin 12.1 g/dl (14.0-18.0); Immature Granulocytes # (auto) 0.22 K/uL (0.01-0.20); Immature Granulocytes % (auto) 0.9 %; Lymphocytes # (auto) 1.53 K/uL (1.20-3.40); Lymphocytes % (auto) 6.6 %; Mean Corpuscular Hemoglobin 27.8 pg (25.0-34.0); Mean Corpuscular Hgb Conc 33.8 g/dL (32.0-36.0); Mean Corpuscular Volume 82.1 fL (80.0-100.0); Mean Platelet Volume 9.6 fL (9.4-12.4); Monocytes % (auto) 7.3 %; Neutrophils # (auto) 19.79 K/uL (1.40-6.50); Neutrophils % (auto) 84.8 %; Platelet Count 351 K/uL (130-400); RDW Coefficient of Variation 12.7 % (11.5-14.5); RDW Standard Deviation 38.3 fL (36.4-46.3); Red Blood Count 4.36 M/uL (4.70-6.10); Reticulocyte % 1.57 % (0.50-2.00); White Blood Count 23.34 K/ul (4.8-10.8)
[2024-08-03 06:39] LABS: BUN Creatinine Ratio 15.1 (10-20); Calcium 9.3 mg/dl (8.6-10.3); Creatinine Clr Calc Pharmacy 135.2 ml/min; Potassium 3.9 mmol/L (3.5-5.1)
[2024-08-03 06:59] LABS: Ferritin 325.6 ng/ml (8-388)
[2024-08-03 07:04] LABS: Folate (Folic Acid),Ser orPlas 17.15 ng/ml (>5.38)
[2024-08-03] MEDS: MoRPHine SULFATE 4 MG/ML 1 ML CARP\\VIAL IV PRN (07:21)
[2024-08-03] MEDS: CITALOPRAM 40 MG TAB PO SCH (07:21)
[2024-08-03] MEDS: lisinopril 5 MG TAB PO SCH (07:21)
[2024-08-03] MEDS ORDERED: ACETAMINOPHEN 1,000 MG/100 ML VIAL IV PRN (09:17)
[2024-08-03] MEDS: HYDROmorphone INJ 1 MG/ML SYRINGE IV STA (09:25)
--- NOTE | 2024-08-03 09:26 | Surgery Consultation ---
Date of Consultation August 03, 2024 Assessment & Plan (1) Diverticulitis: First episode. No urgent indication for surgical intervention. Continue antibiotics. Will make him n.p.o. Low-grade fever and leukocytosis. Will monitor both. Will change his morphine to Dilaudid secondary to side effects. Will continue to monitor closely History of Present Illness Attending Physician: Finn Blevins MD History of Present Illness 39-year-old male whose had about a 24-hour history of lower abdominal pain. He was admitted with acute diverticulitis. He is stating the morphine is giving him a headache. He has a low-grade fever and continues to have abdominal pain with no improvement. Allergies Allergy/AdvReac Type Severity Reaction Status Date / Time No Known Allergies Allergy Unverified 07/31/21 23:09 Home Medications Medication Instructions Recorded Confirmed Type citalopram 40 mg tablet 40 mg PO DAILY 07/31/21 07/31/21 History Patient History Medical History Plaque psoriasis Surgical History No significant past surgical history Family History Other No pertinent family history Social History Smoking Status: Never smoker Tobacco Type: Smokeless Tobacco (Dip or Chew) Hx Alcohol Use: No Hx Substance Use: No Preferred Language: Grenadian Communication Ability: Effective Financial Center Manager Required: No Beliefs That Will Affect Care: None Current Living Situation: Spouse Feels Safe at Home: Yes Safety Concerns: Feels Safe At This Time Assistive Devices: Contacts Physical Exam Constitutional: WD/WN, vitals as above no acute distress and not ill appearing Eyes: PERRL, conjunctivae normal, anicteric sclerae EOM intact bilaterally ENMT: external ear and nose normal, oropharynx normal Ears: no hearing impairment Neck: trachea midline, no thyromegaly Respiratory: normal respiratory effort; no respiratory distress and does not use accessory muscles Cardiovascular: Rate/Rhythm: regular rate and regular rhythm Gastrointestinal (Abdomen): soft. +lower abd TTP. no evidence of peritonitis. Skin: no rashes, warm and dry Psychiatric: Orientation: alert, oriented x 3 and cooperative Results & Data Vital Signs (Past 12 Hours) Vital Signs Temp Pulse Pulse Resp BP BP Pulse Ox 08/03/24 07:17 37.7 C H 106 H 19 111/68 94 08/03/24 07:00 111 H 08/03/24 03:25 37.4 C 103 H 22 99/60 L 95 08/03/24 00:06 37.9 C H 08/02/24 22:57 110 H 08/02/24 22:50 38.9 C H 110 H 18 156/80 H 93 08/02/24 22:12 105 H 16 154/90 H 95 O2 Del Method 08/03/24 07:17 Room Air 08/03/24 07:00 08/03/24 03:25 Room Air 08/03/24 00:06 08/02/24 22:57 08/02/24 22:50 Room Air 08/02/24 22:12 Room Air PG Care Time/CCT Total # of Minutes Spent Total Time Spent with Patient: Total time spent is greater than 50% in coordination of care (as documented) at patient's floor/unit and/or counseling patient: Coding Level of Care Code 65739 IN/OBS CONSULT LVL 3,45M Diagnoses Diverticulitis K57.92
--- NOTE | 2024-08-03 10:31 | Hospitalist Progress Note ---
Date of Service August 03, 2024 Assessment & Plan (1) Sepsis: Plan: Sepsis secondary to acute diverticulitis WBC 23K, febrile admitted to medical telemetry blood cultx - pending Started on IV Zosyn on admission, will continue General surgery consulted - npo, switched morphine to dilaudid. cont. to closely monitor Outpatient GI consult Hypertensive urgency, history of borderline hypertension, received clonidine on admission. monitor BP New onset anemia, no prior diagnosis as per patient patient without overt bleed symptoms, Anemia workup Hyperglycemia rule out DM, Check hemoglobin A1c DVT prophylaxis. SCDs until occult GI bleed ruled out; Lovenox subcu if FOBT negative Full code Admission and Anticipated Discharge Date Admission Date: August 02, 2024 Subjective Pt seen in follow up of diverticulitis Laying in bed in NAD Reports abd. pain, morphine switched to dilaudid by surgery Febrile on admission, + leukocytosis No chest pain or shortness of breath Review of Systems Review of Systems: All systems reviewed & are unremarkable except as noted in Subjective Physical Exam Physical Exam: GENERAL: WD/WN M in NAD HEENT: NC/AT. NECK : Supple, short neck, no tenderness CHEST : Decreased breath sounds, no tenderness HEART : RRR, no obvious murmurs ABDOMEN: Some distention, soft, + left lower quadrant tenderness EXTREMITIES : Minimal LE swelling, moves extremities NEUROLOGIC : Coherent, no facial asymmetry, speech fluent, answers appropriately, moves extremities SKIN: warm, dry Results & Data Results & Data Vital Signs (Past 12 Hours) Vital Signs Temp Pulse Pulse Resp BP Pulse Ox O2 Del Method 08/03/24 07:17 37.7 C H 106 H 19 111/68 94 Room Air 08/03/24 07:00 111 H 08/03/24 03:25 37.4 C 103 H 22 99/60 L 95 Room Air 08/03/24 00:06 37.9 C H 08/02/24 22:57 110 H 08/02/24 22:50 38.9 C H 110 H 18 156/80 H 93 Room Air Laboratory Results 08/03/24 08/02/24 08/02/24 Range/Units 05:59 21:25 21:00 WBC 23.34 H (4.8-10.8) K/ul RBC 4.36 L (4.70-6.10) M/uL Hgb 12.1 L (14.0-18.0) g/dl Hct 35.8 L (42.0-52.0) % MCV 82.1 (80.0-100.0) fL MCH 27.8 (25.0-34.0) pg MCHC 33.8 (32.0-36.0) g/dL RDW Std Deviation 38.3 (36.4-46.3) fL RDW Coeff of Libby 12.7 (11.5-14.5) % Plt Count 351 (130-400) K/uL MPV 9.6 (9.4-12.4) fL Immature Gran % (Auto) 0.9 % Neut % (Auto) 84.8 % Lymph % (Auto) 6.6 % [place] % (Auto) 7.3 % Eos % (Auto) 0.1 % Baso % (Auto) 0.3 % Reticulocyte % (Auto) 1.57 (0.50-2.00) % Neut # (Auto) 19.79 H (1.40-6.50) K/uL Lymph # (Auto) 1.53 (1.20-3.40) K/uL [place] # (Auto) 1.70 H (0.11-0.59) K/uL Eos # (Auto) 0.03 (0.00-0.50) K/uL Baso # (Auto) 0.07 (0.00-0.20) K/uL Reticulocyte # 0.070 (0.020-0.100) 10^6/uL Immature Gran # (Auto) 0.22 H (0.01-0.20) K/uL Sodium 137 (136-145) mmol/L Potassium 3.9 (3.5-5.1) mmol/L Chloride 104 (98-107) mmol/L Carbon Dioxide 24 (21-32) mmol/L Anion Gap 9 (3-11) BUN 14 (6-23) mg/dl Creatinine 0.93 (0.6-1.4) mg/dl Est Cr Clr Drug Dosing 135.2 ml/min eGFR 106.45 BUN/Creatinine Ratio 15.1 (10-20) Glucose 128 H (70-99(Fasting)) mg/dl Estimat Average Glucose Hemoglobin A1c Lactate 1.7 (0.4-2.0) mmol/L Calcium 9.3 (8.6-10.3) mg/dl Magnesium (1.7-2.4) mg/dl Iron 16 L (35-175) mcg/dl Transferrin 259 (200-360) mg/dl Ferritin 325.6 (8-388) ng/ml Total Bilirubin (0.2-1.0) mg/dl AST (13-39) U/L ALT (7-52) U/L Alkaline Phosphatase (34-104) U/L Total Protein (6.0-8.3) gm/dl Albumin (3.4-5.0) gm/dl Globulin (2.5-4.0) gm/dl Albumin/Globulin Ratio (0.9-2) Lipase (11-82) U/L Vitamin B12 243 (180-914) pg/ml Folate 17.15 (>5.38) ng/ml Urine Color Yellow Urine Appearance Clear (Clear) Urine pH 7.5 (4.5-7.5) Ur Specific Curtis > 1.045 H (1.000-1.030) Urine Protein Negative (Negative) Urine Glucose (UA) Negative (Negative) Urine Ketones Negative (Negative) Urine Blood 2+ H (Negative) Urine Nitrite Negative (Negative) Urine Bilirubin Negative (Negative) Urine Urobilinogen Negative (Negative) Ur Leukocyte Esterase Negative (Negative) Urine WBC (Auto) 0-5 (0-5) /hpf Urine RBC (Auto) >20 H (0-2) /hpf U Hyaline Cast (Auto) 0-2 (0-2) /lpf U Epithel Cells (Auto) 0-2 (0-2) /hpf Urine Bacteria (Auto) None Seen (None Seen) 08/02/24 Range/Units 20:22 WBC 19.80 H (4.8-10.8) K/ul RBC 4.61 L (4.70-6.10) M/uL Hgb 13.2 L (14.0-18.0) g/dl Hct 37.4 L (42.0-52.0) % MCV 81.1 (80.0-100.0) fL MCH 28.6 (25.0-34.0) pg MCHC 35.3 (32.0-36.0) g/dL RDW Std Deviation 37.2 (36.4-46.3) fL RDW Coeff of Libby 12.7 (11.5-14.5) % Plt Count 393 (130-400) K/uL MPV 9.5 (9.4-12.4) fL Immature Gran % (Auto) 0.6 % Neut % (Auto) 83.4 % Lymph % (Auto) 7.9 % [place] % (Auto) 7.0 % Eos % (Auto) 0.6 % Baso % (Auto) 0.5 % Reticulocyte % (Auto) (0.50-2.00) % Neut # (Auto) 16.55 H (1.40-6.50) K/uL Lymph # (Auto) 1.56 (1.20-3.40) K/uL [place] # (Auto) 1.38 H (0.11-0.59) K/uL Eos # (Auto) 0.11 (0.00-0.50) K/uL Baso # (Auto) 0.09 (0.00-0.20) K/uL Reticulocyte # (0.020-0.100) 10^6/uL Immature Gran # (Auto) 0.11 (0.01-0.20) K/uL Sodium 137 (136-145) mmol/L Potassium 3.8 (3.5-5.1) mmol/L Chloride 103 (98-107) mmol/L Carbon Dioxide 24 (21-32) mmol/L Anion Gap 10 (3-11) BUN 17 (6-23) mg/dl Creatinine 0.88 (0.6-1.4) mg/dl Est Cr Clr Drug Dosing 136.4 ml/min eGFR 111.48 BUN/Creatinine Ratio 19.3 (10-20) Glucose 115 H (70-99(Fasting)) mg/dl Estimat Average Glucose Pending Hemoglobin A1c Pending Lactate (0.4-2.0) mmol/L Calcium 9.3 (8.6-10.3) mg/dl Magnesium 1.9 (1.7-2.4) mg/dl Iron (35-175) mcg/dl Transferrin (200-360) mg/dl Ferritin (8-388) ng/ml Total Bilirubin 1.1 H (0.2-1.0) mg/dl AST 37 (13-39) U/L ALT 40 (7-52) U/L Alkaline Phosphatase 69 (34-104) U/L Total Protein 7.9 (6.0-8.3) gm/dl Albumin 4.5 (3.4-5.0) gm/dl Globulin 3.4 (2.5-4.0) gm/dl Albumin/Globulin Ratio 1.3 (0.9-2) Lipase 43 (11-82) U/L Vitamin B12 (180-914) pg/ml Folate (>5.38) ng/ml Urine Color Urine Appearance (Clear) Urine pH (4.5-7.5) Ur Specific [place] (1.000-1.030) Urine Protein (Negative) Urine Glucose (UA) (Negative) Urine Ketones (Negative) Urine Blood (Negative) Urine Nitrite (Negative) Urine Bilirubin (Negative) Urine Urobilinogen (Negative) Ur Leukocyte Esterase (Negative) Urine WBC (Auto) (0-5) /hpf Urine RBC (Auto) (0-2) /hpf U Hyaline Cast (Auto) (0-2) /lpf U Epithel Cells (Auto) (0-2) /hpf Urine Bacteria (Auto) (None Seen) Medications Administered Current Inpatient Medications Acetaminophen (Acetaminophen 325 Mg Tab) 650 mg PO QID PRN PRN Reason: pain/fever Stop: 09/01/24 21:25 Last Admin: 08/03/24 07:28 Dose: 650 mg Citalopram Hydrobromide (Citalopram 40 Mg Tab) 40 mg PO [facility] Stop: 09/02/24 08:59 Last Admin: 08/03/24 07:21 Dose: 40 mg Hydromorphone HCl (Hydromorphone Inj 1 Mg/Ml Syringe) 1 mg IV Q3H PRN PRN Reason: Severe Pain (Scale 7, 8, 9,10) Stop: 08/17/24 09:16 Hydromorphone HCl (Hydromorphone Inj 0.5 Mg/0.5 Ml Syr) 0.5 mg IV Q3H PRN PRN Reason: Moderate Pain (Scale 4, 5, 6) Stop: 08/17/24 09:16 Promethazine HCl (Phenergan) 12.5 mg in 50.5 mls @ 202 mls/hr IV Q6H PRN PRN Reason: Nausea And Vomiting Stop: 09/01/24 21:25 Piperacillin Sod/Tazobactam Sod (Zosyn) 4.5 gm in 100 mls @ 25 mls/hr IV Q8H [facility]; Protocol Stop: 08/13/24 02:59 Last Infusion: 08/03/24 07:09 Dose: Infused Potassium Chloride/Sodium Chloride (Normal Saline W/20 Meq Kcl) 20 meq in 1,000 mls @ 60 mls/hr IV .[id number] ONE Stop: 08/03/24 14:51 Last Admin: 08/03/24 00:08 Dose: 60 mls/hr Acetaminophen (Ofirmev) 1,000 mg in 100 mls @ 400 mls/hr IV Q8H PRN PRN Reason: mild pain or fever Stop: 08/06/24 09:16 Lisinopril (Lisinopril 5 Mg Tab) [facility] Stop: 09/02/24 08:59 Last Admin: 08/03/24 07:21 Dose: 5 mg Lorazepam (Lorazepam 0.5 Mg Tab) 0.5 mg PO TID PRN PRN Reason: Anxiety Stop: 09/01/24 21:26 Oxycodone HCl (Oxycodone Hcl Ir 5 Mg Tab (Immediate Release)) 5 - 10 mg PO QID PRN PRN Reason: Pain Stop: 08/16/24 21:25 Last Admin: 08/03/24 04:48 Dose: 10 mg
[2024-08-03] MEDS: HYDROmorphone INJ 0.5 MG/0.5 ML SYR IV PRN ×2 (11:45→21:47)
[2024-08-03] MEDS: HYDROmorphone INJ 1 MG/ML SYRINGE IV PRN (14:20)
[2024-08-03] MEDS: LORazepam 0.5 MG TAB PO PRN (14:20)
--- NOTE | 2024-08-03 14:32 | Electrocardiogram Report ---
Test Reason : Blood Pressure : */* mmHG Vent. Rate : 101 BPM Atrial Rate : 101 BPM P-R Int : 154 ms QRS Dur : 86 ms QT Int : 324 ms P-R-T Axes : 49 56 47 degrees QTcB Int : 420 ms Sinus tachycardia Otherwise normal ECG No previous ECGs available Confirmed by Jorge Anne ([id number]) on 08/03/2024 2:31:38 PM Referred By: REFERRED SELF Confirmed By: Jorge Anne
[2024-08-03] MEDS ORDERED: NALOXONE HCL 0.4 MG/1 ML VIAL/CARP IV PRN (15:23)
[2024-08-03] MEDS: SODIUM CHLORIDE 0.9% 1,000 ML IV ONE (15:34)
--- NOTE | 2024-08-03 15:38 | Communication Note ---
Date of Service: August 03, 2024 Alerted by the staff caring for patient that he was having increased abdominal pain and distention. I came up to evaluate the patient who states he had an acute flare up of pain in his mid lower abdomen that caused him to cry out. It has since calmed down by the time I came to see the patient. He reports that his pain is otherwise the same as this morning, located in the mid lower/left lower abdomen. He is passing flatus and denies any nausea/vomiting. His vital signs are stable at HR 99, BP 118/72, RR 20, Temp 37.2C. On exam patient is resting in bed, some anxiousness noted regarding plans moving forward. Abdomen is mildly distended with tenderness in the supra pubic region as well as LLQ with voluntary guarding. Patient received some dilaudid and ativan with some relief. He does note that the dilaudid helps but wears off fairly quickly. Morphine was tried initially but he did not tolerate the side effects such as headache. 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 In addition will give him a 1L bolus of NSS and run his IVF maintenance at 125cc/hour. We will keep a close eye on patient should he have any deterioration in clinical status may consider repeating CT scan, but we will hold off on this at this time.
[2024-08-03] MEDS: SODIUM CHLORIDE 0.9% 1,000 ML IV SCH (16:37)
[2024-08-03] MEDS: HYDROmorphone PCA 30 MG/30 ML IV PRN (16:40)
[2024-08-03] MEDS: LORazepam 1 MG TAB PO PRN (21:47)
--- NOTE | 2024-08-04 05:14 | Surgery Progress Note ---
Date of Service August 04, 2024 Assessment & Plan (1) Diverticulitis: Plan: Patient has been admitted on the hospitalist service. Surgery recommendations are as follows: Lumbar CT scan of the abdomen pelvis on 08/02/2024 showed diverticulitis of the mid sigmoid colon. During radiologist noted that there is no abscess or microperforation noted on this study Patient's initial white blood cell count on 08/02/2024 was 19.8 but had risen to 23.3 on 08/03/2024 Patient's most recent febrile episode was noted to be at approximately 10:45 PM on 08/03/2024 (he is currently afebrile) Continue n.p.o. status Continue intravenous fluids for hydration Continue analgesics as needed Continue antiemetics as needed Maintain the patient on antibiotics in the form of Zosyn Of note, patient has had 2 blood culture sent on 08/02/2024 both of which are negative to date Check a.m. labs when available If patient has any clinical deterioration such as worsening abdominal exam or if he has worsening leukocytosis or further fevers we may consider repeating a CT scan of his abdomen/pelvis to assess for any interval change of his diverticulitis as above. wbc down to 16,000 ( 23,000) slowly improving. will continue to follow closely. keep npo/ice chips another 24 hours Admission and Anticipated Discharge Date Admission Date: August 02, 2024 Subjective Patient is currently resting in bed. He notes that he has continued abdominal pain in the left lower quadrant. He denies any nausea or vomiting. He has not had a bowel movement since admission but does report passing some flatus. The patient does report remittent sweats. Physical Exam Gastrointestinal (Abdomen): Abdomen is rotund and overall soft. He does have some guarding in the left lower quadrant. Palpation is noted to cause pain in the left lower quadrant. Results & Data Vital Signs (Past 12 Hours) Vital Signs Temp Pulse Pulse Resp BP BP Pulse Ox 08/04/24 02:54 37.1 C 95 H 18 121/72 94 08/03/24 22:46 37.7 C H 96 H 18 131/70 94 08/03/24 21:57 104 H 08/03/24 19:34 37.4 C 95 H 18 125/77 96 O2 Del Method O2 Flow Rate 08/04/24 02:54 Room Air 08/03/24 22:46 Room Air 08/03/24 21:57 08/03/24 19:34 Nasal Cannula 2 PG Care Time/CCT Total # of Minutes Spent Total Time Spent with Patient: Total time spent is greater than 50% in coordination of care (as documented) at patient's floor/unit and/or counseling patient: Coding Level of Care Code 21387 SUB INP/OBS CARE 07/28MIN Diagnoses Diverticulitis K57.92
--- NOTE | 2024-08-04 07:45 | Hospitalist Progress Note ---
Date of Service August 04, 2024 Assessment & Plan (1) Sepsis: Plan: Sepsis secondary to acute diverticulitis WBC 23K, febrile Now WBC down to 16K admitted to medical telemetry blood cultx - pending Started on IV Zosyn on admission, will continue General surgery consulted - npo, switched morphine to dilaudid. 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 monitor BP New onset anemia - Hgb 13.2 on admission - no prior diagnosis as per patient patient without overt bleed symptoms - Anemia workup - low iron at 16, B12 243, folate 17 Hyperglycemia - rule out DM, Check hemoglobin A1c DVT prophylaxis. SCDs until occult GI bleed ruled out; Lovenox subcu if FOBT negative Full code Admission and Anticipated Discharge Date Admission Date: August 02, 2024 Subjective Pt seen in follow up of diverticulitis Laying in bed in NAD Reports abd. pain better controlled with death claim examiner Febrile on admission, + leukocytosis (improved now to 16k) No chest pain or shortness of breath Review of Systems Review of Systems: All systems reviewed & are unremarkable except as noted in Subjective Physical Exam Physical Exam: GENERAL: WD/WN M in NAD HEENT: NC/AT. NECK : Supple, short neck, no tenderness CHEST : Decreased breath sounds, no tenderness HEART : RRR, no obvious murmurs ABDOMEN: Some distention, soft, + left lower quadrant tenderness EXTREMITIES : Minimal LE swelling, moves extremities NEUROLOGIC : Coherent, no facial asymmetry, speech fluent, answers appropriately, moves extremities SKIN: warm, dry Results & Data Results & Data Vital Signs (Past 12 Hours) Vital Signs Temp Pulse Pulse Resp BP BP Pulse Ox 08/04/24 02:54 37.1 C 95 H 18 121/72 94 08/03/24 22:46 37.7 C H 96 H 18 131/70 94 08/03/24 21:57 104 H O2 Del Method 08/04/24 02:54 Room Air 08/03/24 22:46 Room Air 08/03/24 21:57 Laboratory Results 08/04/24 Range/Units 07:45 WBC 16.26 H (4.8-10.8) K/ul RBC 4.18 L (4.70-6.10) M/uL Hgb 11.5 L (14.0-18.0) g/dl Hct 34.4 L (42.0-52.0) % MCV 82.3 (80.0-100.0) fL MCH 27.5 (25.0-34.0) pg MCHC 33.4 (32.0-36.0) g/dL RDW Std Deviation 38.7 (36.4-46.3) fL RDW Coeff of Libby 12.8 (11.5-14.5) % Plt Count 316 (130-400) K/uL MPV 9.6 (9.4-12.4) fL Sodium 135 L (136-145) mmol/L Potassium 3.5 (3.5-5.1) mmol/L Chloride 101 (98-107) mmol/L Carbon Dioxide 27 (21-32) mmol/L Anion Gap 7 (3-11) BUN 8 (6-23) mg/dl Creatinine 0.85 (0.6-1.4) mg/dl Est Cr Clr Drug Dosing 146.1 ml/min eGFR 112.65 BUN/Creatinine Ratio 9.4 L (10-20) Glucose 112 H (70-99(Fasting)) mg/dl Calcium 9.3 (8.6-10.3) mg/dl Phosphorus 2.8 (2.5-4.9) mg/dl Magnesium 1.8 (1.7-2.4) mg/dl Medications Administered Current Inpatient Medications Citalopram Hydrobromide (Citalopram 40 Mg Tab) 40 mg PO [facility] Stop: 09/02/24 08:59 Last Admin: 08/03/24 07:21 Dose: 40 mg Hydromorphone HCl (Hydromorphone Inj 0.5 Mg/0.5 Ml Syr) 0.5 mg IV Q3H PRN PRN Reason: Mod-Sev Pain (Scale 4-10) Stop: 08/17/24 19:43 Last Admin: 08/04/24 05:13 Dose: 0.5 mg Promethazine HCl (Phenergan) 12.5 mg in 50.5 mls @ 202 mls/hr IV Q6H PRN PRN Reason: Nausea And Vomiting Stop: 09/01/24 21:25 Piperacillin Sod/Tazobactam Sod (Zosyn) 4.5 gm in 100 mls @ 25 mls/hr IV Q8H [facility], [facility]; Protocol Stop: 08/13/24 02:59 Last Infusion: 08/04/24 07:20 Dose: Infused Acetaminophen (Ofirmev) 1,000 mg in 100 mls @ 400 mls/hr IV Q8H PRN PRN Reason: mild pain or fever Stop: 08/06/24 09:16 Sodium Chloride (Nss) 1,000 mls @ 125 mls/hr IV .Q8H [facility] Stop: 08/04/24 15:29 Last Admin: 08/04/24 00:37 Dose: 125 mls/hr Influenza Virus Vacc Triv Types A&B (Influenza Vacc [id number](6m+)/Pf (Iiv3) 0.5ml Syr) 0.5 ml IM .ONCE ONE Stop: 08/04/24 07:45 Lisinopril (Lisinopril 5 Mg Tab) 5 mg PO QAM [facility] Stop: 09/02/24 08:59 Last Admin: 08/03/24 07:21 Dose: 5 mg Lorazepam (Lorazepam 1 Mg Tab) 1 mg PO TID PRN PRN Reason: Anxiety Stop: 09/01/24 21:26 Last Admin: 08/03/24 21:47 Dose: 1 mg Naloxone HCl (Naloxone Hcl 0.4 Mg/1 Ml Vial/Carp) 0.1 mg IV Q5M PRN; Protocol PRN Reason: Oversedation/Resp Depression Stop: 08/17/24 15:22
[2024-08-04 08:27] LABS: Hematocrit (blood only) 34.4 % (42.0-52.0); Hemoglobin 11.5 g/dl (14.0-18.0); Mean Corpuscular Hemoglobin 27.5 pg (25.0-34.0); Mean Corpuscular Hgb Conc 33.4 g/dL (32.0-36.0); Mean Corpuscular Volume 82.3 fL (80.0-100.0); Mean Platelet Volume 9.6 fL (9.4-12.4); Platelet Count 316 K/uL (130-400); RDW Coefficient of Variation 12.8 % (11.5-14.5); RDW Standard Deviation 38.7 fL (36.4-46.3); Red Blood Count 4.18 M/uL (4.70-6.10); White Blood Count 16.26 K/ul (4.8-10.8)
[2024-08-04 08:43] LABS: BUN Creatinine Ratio 9.4 (10-20); Calcium 9.3 mg/dl (8.6-10.3); Creatinine Clr Calc Pharmacy 146.1 ml/min; Magnesium 1.8 mg/dl (1.7-2.4); Phosphorus 2.8 mg/dl (2.5-4.9); Potassium 3.5 mmol/L (3.5-5.1)
[2024-08-04] MEDS: POTASSIUM CHLORIDE CRTAB 20 MEQ TABCR PO STA (13:17)
[2024-08-04] MEDS: INFLUENZA VACC TS2024-25(6m+)/PF (IIV3) 0.5mL Syr IM ONE (18:05)
[2024-08-04] MEDS: D5W AND 1/2NSS 1,000 ML IV SCH (19:49)
--- NOTE | 2024-08-05 05:32 | Surgery Progress Note ---
Date of Service August 05, 2024 Assessment & Plan (1) Diverticulitis: Plan: Patient has been admitted on the hospitalist service. Surgery recommendations are as follows: CT scan of the abdomen pelvis on 08/02/2024 showed diverticulitis of the mid sigmoid colon. The interpreting radiologist noted that there is no abscess or microperforation noted on this study Patient's initial white blood cell count on 08/02/2024 was 19.8 but had risen to 23.3 on 08/03/2024; this is improved to 16.2 on 08/04/2024 The patient has not had any febrile episodes in over 24 hours Continue n.p.o. status for the present time Continue intravenous fluids for hydration until oral intake can be advanced and is noted to be adequate Continue analgesics as needed Continue antiemetics as needed Maintain the patient on antibiotics in the form of Zosyn Of note, patient has had 2 blood culture sent on 08/02/2024 which remain negative to date Check a.m. labs when available If patient has any clinical deterioration such as worsening abdominal exam or if he has worsening leukocytosis or further fevers we may consider repeating a CT scan of his abdomen/pelvis to assess for any interval change of his diverticulitis as above. feeling better. afebrile now. wbc continues to improve. no urgent surgical intervention indicated. will try clears today. Admission and Anticipated Discharge Date Admission Date: August 02, 2024 Subjective Patient is resting comfortably in bed. He notes that his abdominal pain has improved since admission. He denies any nausea or vomiting. He is passing flatus but has not had a bowel movement since admission. He denies any fevers but does have occasional sweats. He also adds that his appetite has improved since admission. Physical Exam Gastrointestinal (Abdomen): Abdomen is soft and nondistended. There is no rigidity or signs of peritonitis. Patient does have some tenderness in the left lower quadrant but this is noted to be markedly improved from what was noted during previous exams. Results & Data Vital Signs (Past 12 Hours) Vital Signs Temp Pulse Pulse Resp BP Pulse Ox O2 Del Method 08/05/24 03:35 36.6 C 78 16 126/73 95 Room Air 08/05/24 00:41 85 08/04/24 23:12 36.8 C 83 18 152/96 H 96 Room Air 02/01/25 19:37 36.6 C 84 18 132/83 97 Room Air PG Care Time/CCT Total # of Minutes Spent Total Time Spent with Patient: Total time spent is greater than 50% in coordination of care (as documented) at patient's floor/unit and/or counseling patient: Coding Level of Care Code 66307 SUB INP/OBS CARE Diagnoses Diverticulitis K57.92
[2024-08-05 06:30] LABS: Hematocrit (blood only) 36.5 % (42.0-52.0); Hemoglobin 12.1 g/dl (14.0-18.0); Mean Corpuscular Hemoglobin 27.6 pg (25.0-34.0); Mean Corpuscular Hgb Conc 33.2 g/dL (32.0-36.0); Mean Corpuscular Volume 83.3 fL (80.0-100.0); Mean Platelet Volume 9.7 fL (9.4-12.4); Platelet Count 360 K/uL (130-400); RDW Coefficient of Variation 12.4 % (11.5-14.5); RDW Standard Deviation 38.1 fL (36.4-46.3); Red Blood Count 4.38 M/uL (4.70-6.10); White Blood Count 12.55 K/ul (4.8-10.8)
[2024-08-05 06:55] LABS: BUN Creatinine Ratio 11.5 (10-20); Calcium 9.7 mg/dl (8.6-10.3); Creatinine Clr Calc Pharmacy 159.5 ml/min; Magnesium 2.1 mg/dl (1.7-2.4); Phosphorus 3.6 mg/dl (2.5-4.9); Potassium 3.7 mmol/L (3.5-5.1)
--- NOTE | 2024-08-05 07:47 | Hospitalist Progress Note ---
Date of Service August 05, 2024 Assessment & Plan (1) Sepsis: Plan: Sepsis secondary to acute diverticulitis WBC 23K, febrile 2/2 Now WBC down to 12K and afebrile admitted to medical telemetry blood cultx - negat. for 48 hrs Started on IV Zosyn on admission, will continue General surgery consulted - npo, switched morphine to dilaudid. 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 monitor BP New onset anemia - Hgb 13.2 on admission, now 12.1, stable - no prior diagnosis as per patient patient without overt bleed symptoms - Anemia workup - low iron at 16, B12 243, folate 17 Hyperglycemia - rule out DM, Check hemoglobin [id number] DVT prophylaxis. SCDs until occult GI bleed ruled out; Lovenox subcu if FOBT negative Full code Admission and Anticipated Discharge Date Admission Date: August 02, 2024 Subjective Pt seen in follow up of diverticulitis Laying in bed in [facility] Reports abd. 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 NECK : Supple, short neck, no tenderness CHEST : Decreased breath sounds, no tenderness HEART : RRR, no obvious murmurs ABDOMEN: Some distention, soft, + left lower quadrant tenderness - improved EXTREMITIES : Minimal LE swelling, moves extremities NEUROLOGIC : Coherent, no facial asymmetry, speech fluent, answers appropriately, moves extremities SKIN: warm, dry Results & Data Results & Data Vital Signs (Past 12 Hours) Vital Signs Temp Pulse Pulse Resp BP Pulse Ox O2 Del Method 08/05/24 07:05 75 08/05/24 03:35 36.6 C 78 16 126/73 95 Room Air 08/05/24 00:41 85 08/04/24 23:12 36.8 C 83 18 152/96 H 96 Room Air Laboratory Results 08/05/24 08/04/24 Range/Units 05:51 07:45 WBC 12.55 H 16.26 H (4.8-10.8) K/ul RBC 4.38 L 4.18 L (4.70-6.10) M/uL Hgb 12.1 L 11.5 L (14.0-18.0) g/dl Hct 36.5 L 34.4 L (42.0-52.0) % MCV 83.3 82.3 (80.0-100.0) fL MCH 27.6 27.5 (25.0-34.0) pg MCHC 33.2 33.4 (32.0-36.0) g/dL RDW Std Deviation 38.1 38.7 (36.4-46.3) fL RDW Coeff of Libby 12.4 12.8 (11.5-14.5) % Plt Count 360 316 (130-400) K/uL MPV 9.7 9.6 (9.4-12.4) fL Sodium 137 135 L (136-145) mmol/L Potassium 3.7 3.5 (3.5-5.1) mmol/L Chloride 101 101 (98-107) mmol/L Carbon Dioxide 28 27 (21-32) mmol/L Anion Gap 8 7 (3-11) BUN 9 8 (6-23) mg/dl Creatinine 0.78 0.85 (0.6-1.4) mg/dl Est Cr Clr Drug Dosing 159.5 146.1 ml/min eGFR 115.62 112.65 BUN/Creatinine Ratio 11.5 9.4 L (10-20) Glucose 112 H 112 H (70-99(Fasting)) mg/dl Calcium 9.7 9.3 (8.6-10.3) mg/dl Phosphorus 3.6 2.8 (2.5-4.9) mg/dl Magnesium 2.1 1.8 (1.7-2.4) mg/dl Medications Administered Current Inpatient Medications Citalopram Hydrobromide (Citalopram 40 Mg Tab) [facility]: 09/02/24 08:59 Last Admin: 08/04/24 09:02 Dose: Not Given Hydromorphone HCl (Hydromorphone Inj 0.5 Mg/0.5 Ml Syr) 0.5 mg IV Q3H PRN PRN Reason: Mod-Sev Pain (Scale 4-10) Stop: 08/17/24 19:43 Last Admin: 08/05/24 07:10 Dose: 0.5 mg Promethazine HCl (Phenergan) 12.5 mg in 50.5 mls @ 202 mls/hr IV Q6H PRN PRN Reason: Nausea And Vomiting Stop: 09/01/24 21:25 Piperacillin Sod/Tazobactam Sod (Zosyn) 4.5 gm in 100 mls @ 25 mls/hr IV Q8H [facility]; Protocol Stop: 08/13/24 02:59 Last Infusion: 08/05/24 07:30 Dose: Infused Acetaminophen (Ofirmev) 1,000 mg in 100 mls @ 400 mls/hr IV Q8H PRN PRN Reason: mild pain or fever Stop: 08/06/24 09:16 Dextrose/Sodium Chloride (D5w And 1/2nss) 1,000 mls @ 125 mls/hr IV .Q8H [facility] Stop: 08/05/24 19:21 Last Admin: 08/05/24 03:58 Dose: 125 mls/hr Lisinopril (Lisinopril 5 Mg Tab) 5 mg PO QAM [facility] Stop: 09/02/24 08:59 Last Admin: 08/04/24 08:06 Dose: 5 mg Lorazepam (Lorazepam 1 Mg Tab) 1 mg PO TID PRN PRN Reason: Anxiety Stop: 09/01/24 21:26 Last Admin: 08/03/24 21:47 Dose: 1 mg Naloxone HCl (Naloxone Hcl 0.4 Mg/1 Ml Vial/Carp) 0.1 mg IV Q5M PRN; Protocol PRN Reason: Oversedation/Resp Depression Stop: 08/17/24 15:22
[2024-08-06 08:39] LABS: Hematocrit (blood only) 38.3 % (42.0-52.0); Hemoglobin 12.8 g/dl (14.0-18.0); Mean Corpuscular Hemoglobin 27.5 pg (25.0-34.0); Mean Corpuscular Hgb Conc 33.4 g/dL (32.0-36.0); Mean Corpuscular Volume 82.2 fL (80.0-100.0); Mean Platelet Volume 9.2 fL (9.4-12.4); Platelet Count 426 K/uL (130-400); RDW Coefficient of Variation 12.8 % (11.5-14.5); RDW Standard Deviation 38.6 fL (36.4-46.3); Red Blood Count 4.66 M/uL (4.70-6.10); White Blood Count 10.77 K/ul (4.8-10.8)
[2024-08-06 09:02] LABS: BUN Creatinine Ratio 12.8 (10-20); Calcium 10.1 mg/dl (8.6-10.3); Creatinine Clr Calc Pharmacy 144.3 ml/min; Magnesium 2.1 mg/dl (1.7-2.4); Phosphorus 4.3 mg/dl (2.5-4.9); Potassium 3.5 mmol/L (3.5-5.1)
--- NOTE | 2024-08-06 09:14 | Hospitalist Progress Note ---
Date of Service August 06, 2024 Assessment & Plan (1) Sepsis: Plan: Sepsis secondary to acute diverticulitis WBC 23K, febrile 2/2 Now WBC down to 10.7K and afebrile admitted to medical telemetry blood cultx - negat. for 48 hrs Started on IV Zosyn on admission, will continue General surgery consulted - switched morphine to dilaudid. 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 monitor BP New onset anemia - Hgb 13.2 on admission, now 12.8, stable - no prior diagnosis as per patient without overt bleed symptoms - Anemia workup - low iron at 16, B12 243, folate 17 Hyperglycemia - rule out DM, Check hemoglobin [id number] DVT prophylaxis. SCDs until occult GI bleed ruled out; Lovenox subcu if FOBT negative Full code Admission and Anticipated Discharge Date Admission Date: August 02, 2024 Subjective Pt seen in follow up of diverticulitis Laying in bed in [facility], overall feels better today, abd. pain much improved Febrile on admission, + leukocytosis (improved now to 10.7k, and afebrile) No chest pain or shortness of breath Diet advanced per surgery to full liquid Review of Systems Review of Systems: All systems reviewed & are unremarkable except as noted in Subjective Physical Exam Physical Exam: GENERAL: WD/WN M in NAD HEENT: NC/AT. NECK : Supple, short neck, no tenderness CHEST : Decreased breath sounds, no tenderness HEART : RRR, no obvious murmurs ABDOMEN: Some distention, soft, + left lower quadrant tenderness - improved EXTREMITIES : Minimal LE swelling, moves extremities NEUROLOGIC : Coherent, no facial asymmetry, speech fluent, answers appropriately, moves extremities SKIN: warm, dry Results & Data Results & Data Vital Signs (Past 12 Hours) Vital Signs Temp Pulse Pulse Resp BP BP Pulse Ox 08/06/24 08:12 36.8 C 70 16 146/91 H 98 08/06/24 07:26 77 08/06/24 03:44 37 C 83 16 124/77 95 08/06/24 00:15 79 08/05/24 23:12 36.6 C 79 16 125/72 98 O2 Del Method 08/06/24 08:12 Room Air 08/06/24 07:26 08/06/24 03:44 Room Air 08/06/24 00:15 08/05/24 23:12 Room Air Laboratory Results 08/06/24 Range/Units 07:57 WBC 10.77 (4.8-10.8) K/ul RBC 4.66 L (4.70-6.10) M/uL Hgb 12.8 L (14.0-18.0) g/dl Hct 38.3 L (42.0-52.0) % MCV 82.2 (80.0-100.0) fL MCH 27.5 (25.0-34.0) pg MCHC 33.4 (32.0-36.0) g/dL RDW Std Deviation 38.6 (36.4-46.3) fL RDW Coeff of Libby 12.8 (11.5-14.5) % Plt Count 426 H (130-400) K/uL MPV 9.2 L (9.4-12.4) fL Sodium 137 (136-145) mmol/L Potassium 3.5 (3.5-5.1) mmol/L Chloride 99 (98-107) mmol/L Carbon Dioxide 30 (21-32) mmol/L Anion Gap 8 (3-11) BUN 11 (6-23) mg/dl Creatinine 0.86 (0.6-1.4) mg/dl Est Cr Clr Drug Dosing 144.3 ml/min eGFR 112.26 BUN/Creatinine Ratio 12.8 (10-20) Glucose 94 (70-99(Fasting)) mg/dl Calcium 10.1 (8.6-10.3) mg/dl Phosphorus 4.3 (2.5-4.9) mg/dl Magnesium 2.1 (1.7-2.4) mg/dl Medications Administered Current Inpatient Medications Citalopram Hydrobromide (Citalopram 40 Mg Tab) 40 mg PO QAM [facility] Stop: 09/02/24 08:59 Last Admin: 08/05/24 08:15 Dose: 40 mg Hydromorphone HCl (Hydromorphone Inj 0.5 Mg/0.5 Ml Syr) 0.5 mg IV Q3H PRN PRN Reason: Mod-Sev Pain (Scale 4-10) Stop: 08/17/24 19:43 Last Admin: 08/06/24 08:31 Dose: 0.5 mg Promethazine HCl (Phenergan) 12.5 mg in 50.5 mls @ 202 mls/hr IV Q6H PRN PRN Reason: Nausea And Vomiting Stop: 09/01/24 21:25 Piperacillin Sod/Tazobactam Sod (Zosyn) 4.5 gm in 100 mls @ 25 mls/hr IV Q8H [facility]; Protocol Stop: 08/13/24 02:59 Last Infusion: 08/06/24 07:25 Dose: Infused Acetaminophen (Ofirmev) 1,000 mg in 100 mls @ 400 mls/hr IV Q8H PRN PRN Reason: mild pain or fever Stop: 08/06/24 09:16 Lisinopril (Lisinopril 5 Mg Tab) 5 mg PO QAM [facility] Stop: 09/02/24 08:59 Last Admin: 08/05/24 08:15 Dose: Not Given Lorazepam (Lorazepam 1 Mg Tab) 1 mg PO TID PRN PRN Reason: Anxiety Stop: 09/01/24 21:26 Last Admin: 08/03/24 21:47 Dose: 1 mg Naloxone HCl (Naloxone Hcl 0.4 Mg/1 Ml Vial/Carp) 0.1 mg IV Q5M PRN; Protocol PRN Reason: Oversedation/Resp Depression Stop: 08/17/24 15:22
[2024-08-06] MEDS: POTASSIUM CHLORIDE CRTAB 20 MEQ TABCR PO STA (09:50)
--- NOTE | 2024-08-06 10:56 | Surgery Progress Note ---
Date of Service August 06, 2024 Assessment & Plan (1) Diverticulitis: Plan: improving leukocytosis resolved avss tolerating clear liquids passing flatus Plan: advance to full liquids continue IV abx ambulate continue medical management low fiber diet for 4 weeks on discharge Discussed with Dr. Lowery who agrees with above Admission and Anticipated Discharge Date Admission Date: August 02, 2024 Subjective feeling a lot better today no nausea, or vomiting passing gas, no bowel movement no chest pain, shortness of breath urinating without difficulty some pain 7/10 in left lower abdomen this am but better after passing gas and urinating no fevers or chills Physical Exam Constitutional: WD/WN, vitals as above cooperative and comfortable; no acute distress and not ill appearing Respiratory: normal respiratory effort; no respiratory distress Gastrointestinal (Abdomen): Inspection/Auscultation: abdomen normal to inspection; abdomen not distended Percussion/Palpation: + abdomen tender (LLQ upon deep palpation) and abdomen soft; no guarding, abdomen not rigid and abdomen not firm Skin: no rashes, warm and dry Psychiatric: Orientation: alert and oriented x 3 Results & Data Vital Signs (Past 12 Hours) Vital Signs Temp Pulse Pulse Resp BP BP Pulse Ox 08/06/24 08:12 36.8 C 70 16 146/91 H 98 08/06/24 07:26 77 08/06/24 03:44 37 C 83 16 124/77 95 08/06/24 00:15 79 08/05/24 23:12 36.6 C 79 16 125/72 98 O2 Del Method 08/06/24 08:12 Room Air 08/06/24 07:26 08/06/24 03:44 Room Air 08/06/24 00:15 08/05/24 23:12 Room Air Laboratory Results 08/06/24 Range/Units 07:57 WBC 10.77 (4.8-10.8) K/ul RBC 4.66 L (4.70-6.10) M/uL Hgb 12.8 L (14.0-18.0) g/dl Hct 38.3 L (42.0-52.0) % MCV 82.2 (80.0-100.0) fL MCH 27.5 (25.0-34.0) pg MCHC 33.4 (32.0-36.0) g/dL RDW Std Deviation 38.6 (36.4-46.3) fL RDW Coeff of Libby 12.8 (11.5-14.5) % Plt Count 426 H (130-400) K/uL MPV 9.2 L (9.4-12.4) fL Sodium 137 (136-145) mmol/L Potassium 3.5 (3.5-5.1) mmol/L Chloride 99 (98-107) mmol/L Carbon Dioxide 30 (21-32) mmol/L Anion Gap 8 (3-11) BUN 11 (6-23) mg/dl Creatinine 0.86 (0.6-1.4) mg/dl Est Cr Clr Drug Dosing 144.3 ml/min eGFR 112.26 BUN/Creatinine Ratio 12.8 (10-20) Glucose 94 (70-99(Fasting)) mg/dl Calcium 10.1 (8.6-10.3) mg/dl Phosphorus 4.3 (2.5-4.9) mg/dl Magnesium 2.1 (1.7-2.4) mg/dl
[2024-08-06] MEDS: CALCIUM CARBONATE 500 MG CHEWABLE TAB PO PRN (11:42)
[2024-08-07 07:25] LABS: Hematocrit (blood only) 36.8 % (42.0-52.0); Hemoglobin 12.4 g/dl (14.0-18.0); Mean Corpuscular Hemoglobin 27.8 pg (25.0-34.0); Mean Corpuscular Hgb Conc 33.7 g/dL (32.0-36.0); Mean Corpuscular Volume 82.5 fL (80.0-100.0); Mean Platelet Volume 9.2 fL (9.4-12.4); Platelet Count 435 K/uL (130-400); RDW Coefficient of Variation 12.8 % (11.5-14.5); RDW Standard Deviation 38.8 fL (36.4-46.3); Red Blood Count 4.46 M/uL (4.70-6.10); White Blood Count 11.86 K/ul (4.8-10.8)
[2024-08-07 07:38] LABS: BUN Creatinine Ratio 15.6 (10-20); Calcium 10.2 mg/dl (8.6-10.3); Creatinine Clr Calc Pharmacy 129.3 ml/min; Phosphorus 4.3 mg/dl (2.5-4.9); Potassium 4.1 mmol/L (3.5-5.1)
[2024-08-07 08:53] LABS: Estimated Average Glucose 128 mg/dl; Hemoglobin A1C 6.1 % (4.5-5.6)
--- NOTE | 2024-08-07 09:20 | Surgery Progress Note ---
Date of Service August 07, 2024 Assessment & Plan (1) Diverticulitis: Plan: improving avss tolerating advancing diet + bowel function Plan: advance to low fiber diet transition to oral abx for 7 days on discharge ambulate continue medical management low fiber diet for 4 weeks on discharge our services signing off, call with questions/concerns Discussed with Dr. Lowery who agrees with above Admission and Anticipated Discharge Date Admission Date: August 02, 2024 Subjective feeling even better today minimal pain upon examination, no pain at rest + bowel movements 3 loose yesterday, +flatus no n,v tolerated full liquids, hungry wants more to eat no fever, chills, sweats Physical Exam Constitutional: WD/WN, vitals as above cooperative and comfortable; no acute distress and not ill appearing Respiratory: normal respiratory effort; no respiratory distress Gastrointestinal (Abdomen): Inspection/Auscultation: abdomen normal to inspection; abdomen not distended Percussion/Palpation: + abdomen tender (mild in LLQ on deep palpation, improved compared to yesterdays exam) and abdomen soft; no guarding, abdomen not rigid and abdomen not firm Skin: no rashes, warm and dry Psychiatric: A+Ox3, euthymic affect Results & Data Vital Signs (Past 12 Hours) Vital Signs Temp Pulse Pulse Resp BP BP Pulse Ox 08/07/24 07:56 36.6 C 76 14 144/86 H 97 08/07/24 07:20 80 08/07/24 03:32 36.6 C 72 20 109/69 97 08/07/24 00:07 36.7 C 79 20 126/72 95 08/06/24 21:50 100 H 08/06/24 21:45 O2 Del Method 08/07/24 07:56 Room Air 08/07/24 07:20 08/07/24 03:32 Room Air 08/07/24 00:07 Room Air 08/06/24 21:50 08/06/24 21:45 Room Air Laboratory Results 08/07/24 08/02/24 Range/Units 07:03 20:22 WBC 11.86 H (4.8-10.8) K/ul RBC 4.46 L (4.70-6.10) M/uL Hgb 12.4 L (14.0-18.0) g/dl Hct 36.8 L (42.0-52.0) % MCV 82.5 (80.0-100.0) fL MCH 27.8 (25.0-34.0) pg MCHC 33.7 (32.0-36.0) g/dL RDW Std Deviation 38.8 (36.4-46.3) fL RDW Coeff of Libby 12.8 (11.5-14.5) % Plt Count 435 H (130-400) K/uL MPV 9.2 L (9.4-12.4) fL Sodium 138 (136-145) mmol/L Potassium 4.1 (3.5-5.1) mmol/L Chloride 102 (98-107) mmol/L Carbon Dioxide 28 (21-32) mmol/L Anion Gap 8 (3-11) BUN 15 (6-23) mg/dl Creatinine 0.96 (0.6-1.4) mg/dl Est Cr Clr Drug Dosing 129.3 ml/min eGFR 102.47 BUN/Creatinine Ratio 15.6 (10-20) Glucose 102 H (70-99(Fasting)) mg/dl Estimat Average Glucose 128 mg/dl Hemoglobin A1c 6.1 H (4.5-5.6) % Calcium 10.2 (8.6-10.3) mg/dl Phosphorus 4.3 (2.5-4.9) mg/dl Magnesium 2.0 (1.7-2.4) mg/dl
[2024-08-07] MEDS: oxyCODONE HCL IR 5 MG TAB (IMMEDIATE RELEASE) PO PRN (10:37)
--- NOTE | 2024-08-07 10:47 | Discharge Summary ---
Date of Service August 07, 2024 Admission HPI Per Admitting Provider History obtained from patient and records. Medical history significant for borderline hypertension, mood disorder. 2 days history of achy left lower quadrant pain associated with nausea and vomiting symptoms. Fever chills at home. Denies constipation, diarrhea or hematochezia symptoms. No prior episodes. Highest SBP of 170s documented at the ER. IV Zosyn administered at the ER. Medical History as above No prior colonoscopies. 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 Admission Exam Per Admitting Provider GENERAL: uncomfortable, obese, no respiratory distress SKIN: Normal color, warm HEENT: [place] palpebral conjunctivae, no ptosis, dry buccal mucosa NECK : Supple, short neck, no tenderness CHEST : Decreased breath sounds, no tenderness HEART : RRR, no obvious murmurs ABDOMEN: Some distention, left lower quadrant tenderness EXTREMITIES : Minimal LE swelling/tenderness, palpable pulses, no other conspicuous deformities noted NEUROLOGIC : Coherent, no facial asymmetry, no other gross focality Principal Diagnosis Acute diverticulitis Discharge Exam GENERAL: WD/WN M in NAD HEENT: NC/AT. NECK : Supple, short neck, no tenderness CHEST : Decreased breath sounds, no tenderness HEART : RRR, no obvious murmurs ABDOMEN: Some distention, soft, + left lower quadrant tenderness - much improved/resolved EXTREMITIES : Minimal LE swelling, moves extremities NEUROLOGIC : Coherent, no facial asymmetry, speech fluent, answers a ppropriately, moves extremities SKIN: warm, dry Discharge Data Allergies Allergy/AdvReac Type Severity Reaction Status Date / Time No Known Allergies Allergy Unverified 07/31/21 23:09 Consultations 08/02/24 21:14 ED Decision to Admit Stat 08/03/24 07:22 Consult General Surgery Routine Ordered Studies 08/02/24 20:08 CT abd pelvis IV con only Stat FINDINGS: Lung bases: Unremarkable. ABDOMEN: Liver: Unremarkable. No mass. Gallbladder and bile ducts: Unremarkable. No calcified stones. No ductal dilation. Pancreas: Unremarkable. No mass. No ductal dilation. Spleen: Calcified splenic granuloma. Adrenals: Unremarkable. No mass. Kidneys and ureters: Symmetric renal enhancement. No hydronephrosis. Subcentimeter left renal cysts; no follow-up indicated. Stomach and bowel: No bowel obstruction. Diverticulosis. Acute diverticulitis of the mid sigmoid colon. Prominent pocket of gas adjacent to the sigmoid colon is favored gas within an inflamed diverticulum rather than microperforation (series 2, image 80). PELVIS: Appendix: Normal appendix. Bladder: Unremarkable. No mass. Reproductive: Unremarkable as visualized. ABDOMEN and PELVIS: Intraperitoneal space: Trace ascites in the left lower quadrant. No abscess. No convincing evidence of free air. Bones/joints: No acute fracture. No dislocation. Soft tissues: Unremarkable. Vasculature: Unremarkable. No abdominal aortic aneurysm. Lymph nodes: Mildly enlarged, reactive lymph nodes in the sigmoid mesentery. IMPRESSION: Acute diverticulitis of the mid sigmoid colon. Prominent pocket of gas adjacent to the sigmoid colon is favored gas within an inflamed diverticulum rather than microperforation (series 2, image 80). No abscess. Hospital Course (1) Sepsis: Sepsis secondary to acute diverticulitis WBC 23K, febrile 2/2 Now WBC down/normalized and afebrile admitted to medical telemetry blood cultx - negat. for 48 hrs Started on IV Zosyn on admission, will continue General surgery consulted - switched morphine to dilaudid. 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 Now pain much improved. Pt is asking about discharge. diet advanced to full liquid yesterday as he is improved, now to advance to low fiber passing flatus, + BM Outpatient GI consult Hypertensive urgency, history of borderline hypertension, received clonidine on admission. monitor BP New onset anemia - Hgb 13.2 on admission, now 12.8, stable - no prior diagnosis as per patient without overt bleed symptoms - Anemia workup - low iron at 16, B12 243, folate 17 - fobt ordered - no results available yet - follow up as outpt Hyperglycemia - rule out DM, Check hemoglobin A1c 6.1% - follow up as outpt Total Time Total Time Spent Total Time Spent (In Minutes): 40 Discharge Plan Discharge Items Patient Disposition: Home - Self-Care Reason For Visit: SEPSIS Discharge Diagnosis: Acute diverticulitis Activity: Per Instructions section Non-emergency contact: Primary Care Provider and Surgeon Call non-emergency contact if: you have any medication questions and your symptoms worsen Follow-up/Referrals: [facility],Hospital [Primary Care Provider] - (The [facility] will call you with a follow up appointment.) Diet: Low Fiber Addtl Attending Provider Instructions: Follow up with primary care doctor within 1 week. Finish antibiotic treatment as prescribed. Recommend low fiber diet for next several weeks, advance as tolerated. You should also follow up with gastroenterology, your primary care doctor will provide you with a referral. Pending Studies at Discharge: Yes Studies:: results of blood cultx, FOBT Stand-Alone Forms: [facility], Smoking Cessation Medications and DC Order Prescriptions: New amoxicillin-pot clavulanate 875-125 mg tablet 1 tab PO BID 7 Days Qty: 14 0RF oxycodone 5 mg Tablet 5 mg PO Q4H PRN (Reason: pain) Qty: 10 0RF Continued citalopram 40 mg tablet 40 mg PO DAILY Discharge Orders: Discharge Order (Routine); Ordered 08/07/24 Ordered By: Finn Prieto/Other Patient Handouts: Low-Fiber Diet, Prediabetes, 5 Steps for Eating Healthier Admission Data Admit Date/Time: 08/02/24 21:25 Attending Provider: Finn Blevins Admit Provider: Ramses Wu Primary Care Provider: [facility] Other Providers: Felton Zaidi; Ramses Wu
[2024-08-07 12:00] VITALS: BP 146/94; RESP 18; TEMP 97.7; O2SAT 96
[2024-08-07 13:57] VITALS: PULSE 102
== END 2024-08-07 14:25 | disposition home or self-care (01) | DRG 872 ==
LOC: ED 19:54 → 2W 21:25 → 2N 08-04 06:09